=== PATIENT | female | born 1935 | race Caucasian/White ===

== ENCOUNTER 2017-12-13 10:28 | Inpatient (IN) ==
--- NOTE | 2017-12-13 10:45 | Emergency Department Note ---
Disposition Clinical Impression: Acute kidney injury, Dyspnea, Metabolic acidosis, Elevated troponin, Elevated brain natriuretic peptide (BNP) level, Lactic acidosis Disposition: Admitted As Inpatient General Adult HPI - General Chief complaint: ED Shortness of Breath/Dyspnea Stated complaint: resp distress Time Seen by Provider: 12/13/17 10:29 - Related Data Home Medications Medication Instructions Recorded Confirmed Unable To Obtain [Unable to Obtain] 12/13/17 12/13/17 Allergies Allergy/AdvReac Type Severity Reaction Status Date / Time No Known Allergies Allergy Verified 12/13/17 11:00 Course Vital Signs Respiratory Rate 45 12/13/17 10:30 Blood Pressure 146/92 12/13/17 10:30 O2 Sat by Pulse Oximetry 93 12/13/17 10:30 Temperature 98.1 F 12/13/17 15:33 Pulse Rate 134 12/13/17 15:33 Respiratory Rate 36 12/13/17 15:33 Blood Pressure 150/98 12/13/17 15:33 O2 Sat by Pulse Oximetry 97 12/13/17 15:33 Oxygen Delivery Oxygen Delivery Bipap Medical Decision Making - Lab Data Result diagrams: 12/13/17 15:12 12/13/17 15:12 Lab Results 12/13/17 12/13/17 12/13/17 Range/Units 10:46 10:49 10:49 WBC 12.9 H (4.3-11.1) K/mcL RBC 5.51 H (3.82-4.97) M/mcL Hgb 15.4 (11.5-15.4) g/dL Hct 46.9 H (35.3-44.9) % MCV 85.1 (83.0-100.0) fL MCH 27.9 L (28.0-33.3) pg MCHC 32.8 (31.6-35.5) g/dL RDW 15.3 H (11.5-14.5) % Plt Count 143 (140-400) K/mcL MPV 11.3 (9.4-12.4) fL Immature Gran % 0.7 (0-4) % Seg Neutrophils % 51.8 % Lymphocytes % 39.1 % Monocytes % 7.2 % Eosinophils % 0.7 % Basophils % 0.5 % Neutrophils # 6.7 (1.6-8.9) K/mcL Lymphocytes # 5.0 H (0.6-4.6) K/mcL Monocytes # 0.9 (0.0-1.3) K/mcL Eosinophils # 0.1 (0.0-0.6) K/mcL Basophils # 0.1 (0.0-0.2) K/mcL PT (9.4-12.1) Seconds INR APTT (26.0-36.0) Seconds Sample Site R Radial ABG pH 7.20 L* (7.32-7.45) pH Units ABG pCO2 34 L (35-45) mmHg ABG pO2 78 L (85-104) mmHg ABG HCO3 13 L (21-27) mEq/L ABG Total CO2 14 L (20-26) mEq/L ABG O2 Saturation 92 L (95-98) % ABG Base Excess -14 L (-2 to 3) mEq/L Mikie Test N/A O2 Delivery Device BiPAP Blood Gas Modality NIV Inspired O2 80.0 (1-15=lpm [id number]=%) Sodium 134 L (136-145) mEq/L Potassium 4.2 (3.5-5.1) mEq/L Chloride 98 (98-107) mEq/L Carbon Dioxide 15 L (23-29) mEq/L BUN 16 (8-23) mg/dL Creatinine 1.38 H (0.60-1.20) mg/dL Est GFR ( Amer) 44 L (> 60) Est GFR (Non-Af Amer) 37 L (> 60) BUN/Creatinine Ratio 12 (6-26) Glucose 223 H (70-105) mg/dL Calculated Osmolality 286 (280-300) Lactic Acid (0.5-2.2) mmol/L Calcium 9.2 (8.6-10.3) mg/dL Total Bilirubin 0.7 (0.3-1.0) mg/dL AST 13 (13-39) Units/L ALT 6 L (7-52) Units/L Alkaline Phosphatase 88 (34-104) Units/L Creatine Kinase 74 (30-223) Units/L Troponin I 0.06 H* (< 0.04) ng/mL B-Natriuretic Peptide (Less than 100) pg/mL Serum Total Protein 7.3 (6.4-8.9) g/dL Albumin 3.5 (3.5-5.7) g/dL Globulin 3.8 H (2.4-3.5) g/dL Albumin/Globulin Ratio 0.9 L (1.1-2.2) Urine Color (Yellow) Urine Clarity (Clear) Urine pH (5.0-8.0) pH Units Ur Specific [place] (1.010-1.025) Urine Protein (Neg-Trace) mg/dL Urine Glucose (UA) (Normal) mg/dL Urine Ketones (Negative) mg/dL Urine Blood (Negative) Urine Nitrite (Negative) Urine Bilirubin (Negative) Urine Urobilinogen (Normal) mg/dL Ur Leukocyte Esterase (Negative) Urine Microscopic RBC (0-3) per hpf Urine Microscopic WBC (0-3) per hpf Ur Squamous Epith Cells (None-Few) per lpf [place] Biurate Crystals Urine Bacteria (None-Few) per hpf Specimen Rejected 12/13/17 12/13/17 12/13/17 Range/Units 10:49 10:49 10:49 WBC (4.3-11.1) K/mcL RBC (3.82-4.97) M/mcL Hgb (11.5-15.4) g/dL Hct (35.3-44.9) % MCV (83.0-100.0) fL MCH (28.0-33.3) pg MCHC (31.6-35.5) g/dL RDW (11.5-14.5) % Plt Count (140-400) K/mcL MPV (9.4-12.4) fL Immature Gran % (0-4) % Seg Neutrophils % % Lymphocytes % % Monocytes % % Eosinophils % % Basophils % % Neutrophils # (1.6-8.9) K/mcL Lymphocytes # (0.6-4.6) K/mcL Monocytes # (0.0-1.3) K/mcL Eosinophils # (0.0-0.6) K/mcL Basophils # (0.0-0.2) K/mcL PT 13.1 H (9.4-12.1) Seconds INR 1.2 APTT 33.4 (26.0-36.0) Seconds Sample Site ABG pH (7.32-7.45) pH Units ABG pCO2 (35-45) mmHg ABG pO2 (85-104) mmHg ABG HCO3 (21-27) mEq/L ABG Total CO2 (20-26) mEq/L ABG O2 Saturation (95-98) % ABG Base Excess (-2 to 3) mEq/L Mikie Test O2 Delivery Device Blood Gas Modality Inspired O2 (1-15=lpm [id number]=%) Sodium (136-145) mEq/L Potassium (3.5-5.1) mEq/L Chloride (98-107) mEq/L Carbon Dioxide (23-29) mEq/L BUN (8-23) mg/dL Creatinine (0.60-1.20) mg/dL Est GFR ( Amer) (> 60) Est GFR (Non-Af Amer) (> 60) BUN/Creatinine Ratio (6-26) Glucose (70-105) mg/dL Calculated Osmolality (280-300) Lactic Acid (0.5-2.2) mmol/L Calcium (8.6-10.3) mg/dL Total Bilirubin (0.3-1.0) mg/dL AST (13-39) Units/L ALT (7-52) Units/L Alkaline Phosphatase (34-104) Units/L Creatine Kinase (30-223) Units/L Troponin I (< 0.04) ng/mL B-Natriuretic Peptide 646 H (Less than 100) pg/mL Serum Total Protein (6.4-8.9) g/dL Albumin (3.5-5.7) g/dL Globulin (2.4-3.5) g/dL Albumin/Globulin Ratio (1.1-2.2) Urine Color (Yellow) Urine Clarity (Clear) Urine pH (5.0-8.0) pH Units Ur Specific [place] (1.010-1.025) Urine Protein (Neg-Trace) mg/dL Urine Glucose (UA) (Normal) mg/dL Urine Ketones (Negative) mg/dL Urine Blood (Negative) Urine Nitrite (Negative) Urine Bilirubin (Negative) Urine Urobilinogen (Normal) mg/dL Ur Leukocyte Esterase (Negative) Urine Microscopic RBC (0-3) per hpf Urine Microscopic WBC (0-3) per hpf Ur Squamous Epith Cells (None-Few) per lpf [place] Biurate Crystals Urine Bacteria (None-Few) per hpf Specimen Rejected Clotted 12/13/17 12/13/17 Range/Units 11:55 12:04 WBC (4.3-11.1) K/mcL RBC (3.82-4.97) M/mcL Hgb (11.5-15.4) g/dL Hct (35.3-44.9) % MCV (83.0-100.0) fL MCH (28.0-33.3) pg MCHC (31.6-35.5) g/dL RDW (11.5-14.5) % Plt Count (140-400) K/mcL MPV (9.4-12.4) fL Immature Gran % (0-4) % Seg Neutrophils % % Lymphocytes % % Monocytes % % Eosinophils % % Basophils % % Neutrophils # (1.6-8.9) K/mcL Lymphocytes # (0.6-4.6) K/mcL Monocytes # (0.0-1.3) K/mcL Eosinophils # (0.0-0.6) K/mcL Basophils # (0.0-0.2) K/mcL PT (9.4-12.1) Seconds INR APTT (26.0-36.0) Seconds Sample Site ABG pH (7.32-7.45) pH Units ABG pCO2 (35-45) mmHg ABG pO2 (85-104) mmHg ABG HCO3 (21-27) mEq/L ABG Total CO2 (20-26) mEq/L ABG O2 Saturation (95-98) % ABG Base Excess (-2 to 3) mEq/L Mikie Test O2 Delivery Device Blood Gas Modality Inspired O2 (1-15=lpm [id number]=%) Sodium (136-145) mEq/L Potassium (3.5-5.1) mEq/L Chloride (98-107) mEq/L Carbon Dioxide (23-29) mEq/L BUN (8-23) mg/dL Creatinine (0.60-1.20) mg/dL Est GFR ( Amer) (> 60) Est GFR (Non-Af Amer) (> 60) BUN/Creatinine Ratio (6-26) Glucose (70-105) mg/dL Calculated Osmolality (280-300) Lactic Acid 7.6 H* (0.5-2.2) mmol/L Calcium (8.6-10.3) mg/dL Total Bilirubin (0.3-1.0) mg/dL AST (13-39) Units/L ALT (7-52) Units/L Alkaline Phosphatase (34-104) Units/L Creatine Kinase (30-223) Units/L Troponin I (< 0.04) ng/mL B-Natriuretic Peptide (Less than 100) pg/mL Serum Total Protein (6.4-8.9) g/dL Albumin (3.5-5.7) g/dL Globulin (2.4-3.5) g/dL Albumin/Globulin Ratio (1.1-2.2) Urine Color Yellow (Yellow) Urine Clarity Clear (Clear) Urine pH 5.0 (5.0-8.0) pH Units Ur Specific [place] >= 1.030 H (1.010-1.025) Urine Protein 100 H (Neg-Trace) mg/dL Urine Glucose (UA) 100 H (Normal) mg/dL Urine Ketones Trace H (Negative) mg/dL Urine Blood Moderate H (Negative) Urine Nitrite Negative (Negative) Urine Bilirubin Small H (Negative) Urine Urobilinogen Normal (Normal) mg/dL Ur Leukocyte Esterase Negative (Negative) Urine Microscopic RBC 0-3 (0-3) per hpf Urine Microscopic WBC 0-3 (0-3) per hpf Ur Squamous Epith Cells Few (None-Few) per lpf [place] Biurate Crystals Present Urine Bacteria Moderate H (None-Few) per hpf Specimen Rejected Critical Care Time Critical Care Time: Yes Total Critical Care Time: 45 Attestation: The high probability of a clinically significant, sudden or life threatening deterioration of the [] system(s) required my full and direct attention, intervention and personal management. The aggregate critical care time was [] minutes. This time is in addition to time spent performing reported procedures but includes the following: [] Data Review and interpretation [] Patient assessment and monitoring of vital signs [] Documentation [] Medication orders and management Attestation Statement - Attestation Attestation: I examined this patient and my medical decision-making was reviewed with the Resident Physician. I agree with the documented findings, disposition and treatment plan as described except to the extent set forth below. [id number] time provided Patient presents to the emergency department from home after being found on the floor. Uncertain downtime. She was hypoxic prehospital. She presents tachypneic with increased work of breathing on BiPAP.
[2017-12-13 10:50] LABS: ABG Base Excess -14 mEq/L (-2 to 3); ABG HCO3 13 mEq/L (21-27); ABG Oxygen Saturation 92 % (95-98); ABG PCO2 34 mmHg (35-45); ABG PO2 78 mmHg (85-104); ABG TCO2 14 mEq/L (20-26); Blood Gas Modality NIV
--- NOTE | 2017-12-13 10:52 | Emergency Department Note ---
Disposition Clinical Impression: Acute kidney injury, Metabolic acidosis, Elevated troponin, Elevated brain natriuretic peptide (BNP) level, Lactic acidosis Dyspnea Qualifiers: Dyspnea type: shortness of breath Qualified Code(s): R06.02 - Shortness of breath; R06.00 - Dyspnea, unspecified; R06.01 - Orthopnea Disposition: Admitted As Inpatient Forms: ED Satisfaction Letter General Adult HPI - General Chief complaint: ED Shortness of Breath/Dyspnea Stated complaint: resp distress Time Seen by Provider: 12/13/17 10:29 Source: patient Mode of arrival: EMS Limitations: no limitations Nursing Notes Reviewed: Yes Vital Signs Reviewed: Yes - History of Present Illness HPI Narrative: Patient is an 82-year-old female who presents to the ED via via EMS in respiratory distress. History obtained from EMS as the patient is confused. Earlier this morning the patient was found down on the ground for an unknown period of time by her brother. Patient was found to be in respiratory distress and breathing heavily. She is supposed to be on a CPAP at home and she was not oat the time she was found. EMS was called. She was hypoxic with O2 sats in the 60s. She was placed on cpap and O2 sats went up to 77%. EMS gave HER-2 duo nebs and steroids. Patient is also complaining of right leg pain and has no other complaints at this time. Patient states she fell after using the restroom this morning. She does not know if she lost consciousness or how she fell. She denies lightheadedness, dizziness, chest pain. - Related Data Allergies Allergy/AdvReac Type Severity Reaction Status Date / Time No Known Allergies Allergy Verified 12/13/17 11:00 Limitations: ROS unobtainable due to patients medical condition (confusion and in respiratory distress) Constitutional: Denies: fever Cardiovascular: Denies: chest pain Respiratory: Reports: dyspnea. Denies: cough Gastrointestinal: Denies: abdominal pain Musculoskeletal: Reports: other (right leg pain) Past Medical History - Past Medical History Attestation: Yes The following information was validated with the patient. Source: unable to obtain Physical Exam - General Limitations: altered mental status General appearance: alert, in distress - Head Head exam: atraumatic, normocephalic - Eye Eye exam: Present: EOMI. Absent: scleral icterus - Respiratory Respiratory exam: Present: accessory muscle use, other (on bipap. Course breath sounds throughout. ). Absent: wheezes - Cardiovascular Cardiovascular exam: Present: normal rhythm, tachycardia - Abdominal Exam Abdominal exam: Present: soft, Non-Tender - Extremities Exam Extremities exam: Present: other (right hip abducted and right knee bent. diminished capillary refill bilaterally lower extremity) - Neurological Exam Neurological exam: Present: alert, CN II-XII intact, other (Oriented to person and place) - Skin Skin exam: Present: warm, dry. Absent: diaphoresis Course Vital Signs Respiratory Rate 45 12/13/17 10:30 Blood Pressure 146/92 12/13/17 10:30 O2 Sat by Pulse Oximetry 93 12/13/17 10:30 Temperature 97.7 F 12/13/17 10:48 Pulse Rate 142 12/13/17 10:55 Respiratory Rate 43 12/13/17 11:20 Blood Pressure 163/100 12/13/17 10:55 O2 Sat by Pulse Oximetry 100 12/13/17 11:20 Oxygen Delivery Oxygen Delivery Bipap Medical Decision Making - [facility] Narrative Medical decision making narrative: Patient is presenting in respiratory distress and has some confusion. Unknown what her baseline is. We will obtain CT of her head and cervical spine. We do not know the mechanism of her fall. Will evaluate for pneumonia versus COPD exacerbation versus CHF exacerbation versus cardiac ischemia as the cause of the patient's dyspnea. Will also check urinalysis for urinary tract infection and sepsis workup as a cause of the patient's confusion. Patient received two duonebs and steroids en route and oxygenating 100% on bipap at present. Check EKG, CBC, CMP, troponin, blood cultures, lactic acid, PT/INR, ABG. It is also unknown how long the patient was on after the fall so will also obtain creatine kinase for rhabdo. Will also check pelvis xray as the patient's hip is abducted and she is complaining of right leg pain. Bolus of normal saline will be given. Glucose is 150. 11:12 pH is a 7.2, there is a metabolic acidosis. Xhest xray without evidence of acute cardiopulmonary process. Pelvis xray results reviewed and no displaced fracture noted. Significant osteopenia. 11:28 Notified by lab that troponin is 0.06. Will give aspirin. 11:50 Labs reviewed. BNP is 676. Clinically the patient does not look fluid overloaded and no CXR evidence of fluid overload or pulmonary edema. Will not give diuretics at this time. Mild leukocytosis. Creatinine is elevated and no prior labs to compare, likely has acute kidney injury. She appears dry and fluids are ordered. Urinalysis is still pending. Creatinine kinase normal and no evidence of rhabdomyolisis. 12:30 CT head without evidence of acute intracranial process. No urinary tract infection. Patient has metabolic acidosis from lactic acidosis and no evidence of infection at this time. Likely tachpneic from the lactic acidosis. Will consult hospitalist and admit patient for further management. 13:10 Discussed with hospitalist. He will accept the patient. He would like a CTA of her chest. Will order. 13:15 GFR is 37 and will touch base with hospitalist again in regards to the CTA chest. CTA was canceled. Discussed with hospitalist at 13:17. No further recommendations at this time. - Medical Records Medical records reviewed: Yes I reviewed the patient's medical records. - Lab Data Result diagrams: 12/13/17 10:49 12/13/17 10:49 Lab Results 12/13/17 12/13/17 12/13/17 Range/Units 10:46 10:49 10:49 WBC 12.9 H (4.3-11.1) K/mcL RBC 5.51 H (3.82-4.97) M/mcL Hgb 15.4 (11.5-15.4) g/dL Hct 46.9 H (35.3-44.9) % MCV 85.1 (83.0-100.0) fL MCH 27.9 L (28.0-33.3) pg MCHC 32.8 (31.6-35.5) g/dL RDW 15.3 H (11.5-14.5) % Plt Count 143 (140-400) K/mcL MPV 11.3 (9.4-12.4) fL Immature Gran % 0.7 (0-4) % Seg Neutrophils % 51.8 % Lymphocytes % 39.1 % Monocytes % 7.2 % Eosinophils % 0.7 % Basophils % 0.5 % Neutrophils # 6.7 (1.6-8.9) K/mcL Lymphocytes # 5.0 H (0.6-4.6) K/mcL Monocytes # 0.9 (0.0-1.3) K/mcL Eosinophils # 0.1 (0.0-0.6) K/mcL Basophils # 0.1 (0.0-0.2) K/mcL PT (9.4-12.1) Seconds INR APTT (26.0-36.0) Seconds Sample Site R Radial ABG pH 7.20 L* (7.32-7.45) pH Units ABG pCO2 34 L (35-45) mmHg ABG pO2 78 L (85-104) mmHg ABG HCO3 13 L (21-27) mEq/L ABG Total CO2 14 L (20-26) mEq/L ABG O2 Saturation 92 L (95-98) % ABG Base Excess -14 L (-2 to 3) mEq/L Mikie Test N/A O2 Delivery Device BiPAP Blood Gas Modality NIV Inspired O2 80.0 (1-15=lpm [id number]=%) Sodium 134 L (136-145) mEq/L Potassium 4.2 (3.5-5.1) mEq/L Chloride 98 (98-107) mEq/L Carbon Dioxide 15 L (23-29) mEq/L BUN 16 (8-23) mg/dL Creatinine 1.38 H (0.60-1.20) mg/dL Est GFR ( Amer) 44 L (> 60) Est GFR (Non-Af Amer) 37 L (> 60) BUN/Creatinine Ratio 12 (6-26) Glucose 223 H (70-105) mg/dL Calculated Osmolality 286 (280-300) Calcium 9.2 (8.6-10.3) mg/dL Total Bilirubin 0.7 (0.3-1.0) mg/dL AST 13 (13-39) Units/L ALT 6 L (7-52) Units/L Alkaline Phosphatase 88 (34-104) Units/L Creatine Kinase 74 (30-223) Units/L Troponin I 0.06 H* (< 0.04) ng/mL B-Natriuretic Peptide (Less than 100) pg/mL Serum Total Protein 7.3 (6.4-8.9) g/dL Albumin 3.5 (3.5-5.7) g/dL Globulin 3.8 H (2.4-3.5) g/dL Albumin/Globulin Ratio 0.9 L (1.1-2.2) Specimen Rejected 12/13/17 12/13/17 12/13/17 Range/Units 10:49 10:49 10:49 WBC (4.3-11.1) K/mcL RBC (3.82-4.97) M/mcL Hgb (11.5-15.4) g/dL Hct (35.3-44.9) % MCV (83.0-100.0) fL MCH (28.0-33.3) pg MCHC (31.6-35.5) g/dL RDW (11.5-14.5) % Plt Count (140-400) K/mcL MPV (9.4-12.4) fL Immature Gran % (0-4) % Seg Neutrophils % % Lymphocytes % % Monocytes % % Eosinophils % % Basophils % % Neutrophils # (1.6-8.9) K/mcL Lymphocytes # (0.6-4.6) K/mcL Monocytes # (0.0-1.3) K/mcL Eosinophils # (0.0-0.6) K/mcL Basophils # (0.0-0.2) K/mcL PT 13.1 H (9.4-12.1) Seconds INR 1.2 APTT 33.4 (26.0-36.0) Seconds Sample Site ABG pH (7.32-7.45) pH Units ABG pCO2 (35-45) mmHg ABG pO2 (85-104) mmHg ABG HCO3 (21-27) mEq/L ABG Total CO2 (20-26) mEq/L ABG O2 Saturation (95-98) % ABG Base Excess (-2 to 3) mEq/L Mikie Test O2 Delivery Device Blood Gas Modality Inspired O2 (1-15=lpm [id number]=%) Sodium (136-145) mEq/L Potassium (3.5-5.1) mEq/L Chloride (98-107) mEq/L Carbon Dioxide (23-29) mEq/L BUN (8-23) mg/dL Creatinine (0.60-1.20) mg/dL Est GFR ( Amer) (> 60) Est GFR (Non-Af Amer) (> 60) BUN/Creatinine Ratio (6-26) Glucose (70-105) mg/dL Calculated Osmolality (280-300) Calcium (8.6-10.3) mg/dL Total Bilirubin (0.3-1.0) mg/dL AST (13-39) Units/L ALT (7-52) Units/L Alkaline Phosphatase (34-104) Units/L Creatine Kinase (30-223) Units/L Troponin I (< 0.04) ng/mL B-Natriuretic Peptide 646 H (Less than 100) pg/mL Serum Total Protein (6.4-8.9) g/dL Albumin (3.5-5.7) g/dL Globulin (2.4-3.5) g/dL Albumin/Globulin Ratio (1.1-2.2) Specimen Rejected Clotted - Radiology Data Radiology results reviewed: Yes I reviewed the patient's radiology results. Chest X-Ray 12/13/17 10:40 IMPRESSION: No acute process. D/ / Maximo Kohli MD / Maximo Kohli MD Interpreting Provider: Maximo Kohli MD Pelvis X-Ray 12/13/17 10:40 IMPRESSION: Osteopenia. No displaced fracture. Given the degree of osteopenia, nondisplaced fractures may be radiographically occult. If pain or concern for fracture persists, consider MR imaging. D/ / Reginald Pickard MD / Reginald Pickard MD Interpreting Provider: Reginald Pickard MD - EKG Data EKG #1 EKG attestation: Yes I reviewed and interpreted this EKG. EKG results narrative: EKG on 12/13/17 at 10:36 shows sinus tachycardia with heart rate 147. DE interval 144, QT 312, Qtc 488. No old EKG on file to compare to. No ST elevation or depression noted.
[2017-12-13 11:02] LABS: Basophils # 0.1 K/mcL (0.0-0.2); Basophils % 0.5 %; Eosinophils # 0.1 K/mcL (0.0-0.6); Eosinophils % 0.7 %; Hematocrit 46.9 % (35.3-44.9); Hemoglobin 15.4 g/dL (11.5-15.4); Immature Granulocytes % 0.7 % (0-4); Lymphocytes % 39.1 %; Mean Corpuscular HGB Conc 32.8 g/dL (31.6-35.5); Mean Corpuscular Hemoglobin 27.9 pg (28.0-33.3); Mean Corpuscular Volume 85.1 fL (83.0-100.0); Mean Platelet Volume 11.3 fL (9.4-12.4); Monocytes # 0.9 K/mcL (0.0-1.3); Monocytes % 7.2 %; Neutrophils # 6.7 K/mcL (1.6-8.9); Platelet Count 143 K/mcL (140-400); Red Blood Count 5.51 M/mcL (3.82-4.97); Red Cell Distribution Width 15.3 % (11.5-14.5); Segmented Neutrophils % 51.8 %
[2017-12-13 11:07] LABS: INR 1.2; Prothrombin Time 13.1 Seconds (9.4-12.1)
[2017-12-13] MEDS ORDERED: 0.9 % Sodium Chloride 1,000 ML IVC ONE ×3 (11:08→14:44)
[2017-12-13 11:10] LABS: Activated Partial Thrombo Time 33.4 Seconds (26.0-36.0)
[2017-12-13 11:23] LABS: Albumin 3.5 g/dL (3.5-5.7); Albumin/Globulin Ratio 0.9 (1.1-2.2); Bilirubin,Total 0.7 mg/dL (0.3-1.0); Calcium 9.2 mg/dL (8.6-10.3); Globulin 3.8 g/dL (2.4-3.5); Potassium 4.2 mEq/L (3.5-5.1); Total Protein 7.3 g/dL (6.4-8.9)
[2017-12-13 11:25] LABS: Troponin I 0.06 ng/mL (< 0.04)
[2017-12-13] MEDS ORDERED: Aspirin 325 MG TABLET PO ONE (11:28)
[2017-12-13 12:25] LABS: Bilirubin,Urine Small (Negative); Blood,Urine Moderate (Negative); Clarity,Urine Clear (Clear); Color,Urine Yellow (Yellow); Glucose,Urine (UA) 100 mg/dL (Normal); Ketones,Urine Trace mg/dL (Negative); Leukocyte Esterase,Urine Negative (Negative); Nitrite,Urine Negative (Negative); Protein,Urine 100 mg/dL (Neg-Trace); Specific Gravity,Urine >= 1.030 (1.010-1.025); Urobilinogen,Urine Normal (Normal)
[2017-12-13 12:27] LABS: Bacteria,Urine Moderate per hpf (None-Few); RBC,Urine 0-3 per hpf (0-3); Squamous Epithelial Cell,Urine Few per lpf (None-Few); WBC,Urine 0-3 per hpf (0-3)
[2017-12-13] MEDS ORDERED: 0.9 % Sodium Chloride 1,000 ML ONE (12:27)
[2017-12-13] MEDS ORDERED: Isovue-370 500 ML INFUS..BTL IV ONE ×2 (13:13→14:54)
[2017-12-13 15:05] LABS: ABG Base Excess -11 mEq/L (-2 to 3); ABG HCO3 15 mEq/L (21-27); ABG Oxygen Saturation 97 % (95-98); ABG PCO2 33 mmHg (35-45); ABG PH 7.26 pH Units (7.32-7.45); ABG PO2 99 mmHg (85-104); ABG TCO2 16 mEq/L (20-26)
[2017-12-13] MEDS ORDERED: *HR* Heparin 5,000 UNIT/ML VIAL IVP PRN ×2 (15:09)
[2017-12-13] MEDS ORDERED: *HR* Heparin 5,000 UNIT/ML VIAL IVP ONE (15:09)
[2017-12-13] MEDS ORDERED: 0.9 % Sodium Chloride 1,000 ML IVC SCH (15:15)
[2017-12-13 15:26] LABS: Hematocrit 41.2 % (35.3-44.9); Mean Corpuscular HGB Conc 31.6 g/dL (31.6-35.5); Mean Corpuscular Hemoglobin 27.5 pg (28.0-33.3); Mean Corpuscular Volume 87.1 fL (83.0-100.0); Mean Platelet Volume 9.9 fL (9.4-12.4); Platelet Count 105 K/mcL (140-400); Red Blood Count 4.73 M/mcL (3.82-4.97); Red Cell Distribution Width 15.7 % (11.5-14.5)
[2017-12-13 15:55] LABS: Potassium 4.6 mEq/L (3.5-5.1); Troponin I 0.18 ng/mL (< 0.04)
[2017-12-13] MEDS ORDERED: Piperacillin/Tazobactam 3.375 GM in 0.9 % Sodium Chloride Mini Bag 100 ML IVPB SCH (16:00)
[2017-12-13 16:06] LABS: Heparin anti-factor XA UFH 0.05 IU/mL (0.30-0.70)
[2017-12-13 16:07] LABS: INR 1.2; Prothrombin Time 13.4 Seconds (9.4-12.1)
[2017-12-13 16:14] LABS: Calcium 8.2 mg/dL (8.6-10.3)
--- NOTE | 2017-12-13 16:22 | Internal Med History&Physical ---
Date of Encounter: 12/13/17 Time of Encounter: 16:06 Internal Medicine - H&P: HPI Chief complaint: Respiratory Distress Admitted From: Home Plans for Post Hospital Care: Transfer Care Home Facility History of present illness: Ms. Henderson is a 82 year old female Past Med Surg Social Fam HX - Past Medical History Medical history: non-contributory Psychiatric history: no psych history - Social History Smoking Status: Never smoker Smokeless Tobacco Status: No Alcohol use: none Drug use: none Internal Medicine - H&P: Meds Unable To Obtain [Unable to Obtain] 12/13/17 [History] 3 Allergy/AdvReac Type Severity Reaction Status Date / Time No Known Allergies Allergy Verified 12/13/17 11:00 All Systems PM: A 10-system review of systems was performed and is negative for pertinent findings except as documented above in the HPI. - Constitutional Vitals: Temp Pulse Resp BP Pulse Ox 98.1 F 134 36 150/98 97 12/13/17 15:33 12/13/17 15:33 12/13/17 15:33 12/13/17 15:33 12/13/17 15:33 Internal Med - H&P Results - Labs CBC & Chem 7: 12/13/17 15:12 12/13/17 15:12 Labs: Short CBC 12/13/17 Range/Units 15:12 WBC 17.5 H (4.3-11.1) K/mcL Hgb 13.0 D (11.5-15.4) g/dL Hct 41.2 (35.3-44.9) % Plt Count 105 L (140-400) K/mcL BMP 12/13/17 15:12 Sodium 134 L Potassium 4.6 Chloride 104 Cardiac Enzymes 12/13/17 Range/Units 15:12 Troponin I 0.18 H* (< 0.04) ng/mL - ABG Interpretation ABG results: 12/13/17 15:02 ABG pH 7.26 L ABG pCO2 33 L ABG pO2 99 ABG HCO3 15 L ABG Total CO2 16 L ABG O2 Saturation 97 ABG Base Excess -11 L - Time Spent With Patient Total time spent is greater than 50% in coordination of care (as documented) at patient's floor/unit and/or counseling patient:
--- NOTE | 2017-12-13 16:26 | Internal Med History&Physical ---
Date of Encounter: 12/13/17 Time of Encounter: 16:23 Internal Medicine - H&P: HPI Chief complaint: Respiratory Distress Admitted From: Home Plans for Post Hospital Care: Home History of present illness: Ms. Henderson is a 82 year old female who presented to the emergency department with chief complaint of respiratory distress via EMS. History is obtained from patient and ER documentation unable to reach any family members currently. Reportedly the patient got up this morning and was going to the bathroom and then woke up on the ground when her brother found her. ER document that the patient was supposed to be on CPAP but did not have this on. Patient noted to be hypoxic in the 60s upon EMS arrival and brought to the ER and put on BiPAP. Patient's pulse ox improved on BiPAP with 80% FiO2. Patient states that she felt fine yesterday and felt fine when she woke up this morning. Patient was found to be in severe respiratory distress in the ER but on BiPAP which improved respiratory status and tachypnea. She was found to be tachycardic in the 150s. Patient was found to have a high anion gap metabolic acidosis with lactic acidosis and was given 2 L of IV fluids in the ED. Upon my evaluation in the stepdown unit the patient is alert and oriented 2 and states that she has no pain anywhere and is just short of breath however she states this is improving. On physical exam the patient was found to have a dusky-appearing right foot. Patient also found to have an elevated troponin. Currently the patient states that she is fine and wants to go home, however I explained that she is critically ill. She denies any chest pain, denies any palpitations, denies any abdominal pain or nausea, vomiting, diarrhea. Patient is afebrile Imaging studies reveal multiple DVT and arterial thrombosis with no flow to her right lower extremity. He was explained to the patient she has a life-threatening blood clot that would need surgery to survive and require intubation; after these were explained to her in detail the patient is very adamant that she wants no surgery and does not want to be intubated. The patient seems very competent to make this decision she is very adamant and repeated over and over again that she wants nothing and just wants to go home. She states that she understands that she could pass away without these interventions. This was witnessed by nursing staff, myself, Dr. Parker and multiple team members. Eventually we were able to reach the patient's neighbor who look after her and her brother. He states that this is very much in line with the patient's past wishes that she would not want any aggressive intervention done and states that she has been preparing for the end of her life for some time. We requested that he go speak to the brother and informed him of its going on and call us back so we could talk to him as well. I also called the [employer] Department to perform a wellfare check check on her brother. Due to the patient's wishes and desires to go home she states that she is okay to speak to hospice; will make the patient DNR CC at this point. Spoke to social work who will get in contact with hospice and attempt to arrange for the patient to go back home; however she has no insurance so this is unlikely to having this evening. Past Med Surg Social Fam HX - Past Medical History Medical history: non-contributory Psychiatric history: no psych history - Social History Smoking Status: Never smoker Smokeless Tobacco Status: No Alcohol use: none Drug use: none Internal Medicine - H&P: Meds Unable To Obtain [Unable to Obtain] 12/13/17 [History] 3 Allergy/AdvReac Type Severity Reaction Status Date / Time No Known Allergies Allergy Verified 12/13/17 11:00 All Systems PM: A 10-system review of systems was performed and is negative for pertinent findings except as documented above in the HPI. Review of systems: Review of systems is negative other than described in history of present illness 10 point review of systems was attempted to be obtained but is unable to be obtained due to the patient's critical condition and on BiPAP. - Constitutional Vitals: Temp Pulse Resp BP Pulse Ox 98.1 F 134 36 150/98 97 12/13/17 15:33 12/13/17 15:33 12/13/17 15:33 12/13/17 15:33 12/13/17 15:33 Exam: Constitutional: Moderte respiratory distress on bipap, chacetic Psych: AAO x 2; misses the date but has capacity to make medical decisions; she has good insight; understands that she will likely pass away without further intervention HEENT: NCAT, EOMI Neck: supple Cardio: tachycardic, positive s1,s2, no appreciable murmurs rubs or gallops. Difficult to evaluate secondary to tachycardia, no obvious JVD Resp: Patient with good air movement throughout and coarse breath sounds however no obvious rales rhonchi or wheezes appreciated Abd: soft, non tender/non distended, positive bowel sounds, no gaurding/reboud/ ridgitity Extremities: Patient with bilateral lower extremity swelling, dusky right lower leg, Neuro: no focal deficits appreciated Lymph: no cervical/supraclavicular adenopahty apprecitated Internal Med - H&P Results - Labs CBC & Chem 7: 12/13/17 15:12 12/13/17 15:12 Labs: Short CBC 12/13/17 Range/Units 15:12 WBC 17.5 H (4.3-11.1) K/mcL Hgb 13.0 D (11.5-15.4) g/dL Hct 41.2 (35.3-44.9) % Plt Count 105 L (140-400) K/mcL BMP 12/13/17 15:12 Sodium 134 L Potassium 4.6 Chloride 104 Carbon Dioxide 10 L* BUN 16 Creatinine 1.09 Glucose 176 H Calcium 8.2 L Cardiac Enzymes 12/13/17 Range/Units 15:12 Troponin I 0.18 H* (< 0.04) ng/mL - ABG Interpretation ABG results: 12/13/17 15:02 ABG pH 7.26 L ABG pCO2 33 L ABG pO2 99 ABG HCO3 15 L ABG Total CO2 16 L ABG O2 Saturation 97 ABG Base Excess -11 L - Assessment and plan (1) Acute and chronic respiratory failure with hypoxia Current Visit: Yes Status: Acute Assessment and plan: Patient with acute hypoxic respiratory failure -Highly suspect secondary to acute pulmonary embolism due to prelim imaging findings of arterial thrombosis and bilateral DVTs -Heparin drip started empirically initially -Vascular surgery was consult and spoke to vascular surgeon and initially was going to get a CTA of the chest abdomen and pelvis; however the patient is not clinically stable and would not have survived surgery; in addition to this the patient is very adamant that she did not does not want surgery or intubation even if this means she would likely ; he just wants to be comfortable and go home -We will continue heparin drip as a comfort measure for now -We will continue BiPAP as a comfort measure for now -Ativan and morphine ordered for respiratory distress for comfort -After long discussion with patient and many team members CODE STATUS changed to DNR comfort care (2) High anion gap metabolic acidosis Current Visit: Yes Status: Acute Assessment and plan: High anion gap metabolic acidosis likely secondary to lactic acidosis due to respiratory distress and arterial occlusion -Continue heparin drip as a comfort measure -1 amp of bicarbonate given -Continue comfort measures (3) Arterial occlusion, lower extremity Current Visit: Yes Status: Acute Assessment and plan: Preliminary imaging of right lower extremity arterial occlusion with dusky right lower extremity -Patient does not wish to have surgery -CODE STATUS patient comfort care -Continue heparin as a comfort measure (4) DVT (deep venous thrombosis) Current Visit: Yes Status: Acute Assessment and plan: Bilateral DVTs -Suspected pulmonary embolism -Continue IV heparin as a comfort measure only Qualifiers: DVT location: lower extremity Affected thrombotic vein of extremity: unspecified vein of extremity Chronicity: unspecified Laterality: bilateral Qualified Code(s): I82.403 - Acute embolism and thrombosis of unspecified deep veins of lower extremity, bilateral (5) NSTEMI (non-ST elevated myocardial infarction) Current Visit: Yes Status: Acute Assessment and plan: Patient with elevated troponin likely secondary to increasing demand from suspected pulmonary embolism and severe respiratory distress with hypoxia -On heparin drip -Will not trend further troponins secondary to comfort measures (6) Lactic acidosis Current Visit: Yes Status: Acute Assessment and plan: Lactic acidosis likely secondary to respiratory distress and right lower extremity arterial occlusion -Continue BiPAP and heparin drip -No further labs (7) Leukocytosis Current Visit: Yes Status: Acute Assessment and plan: Likely reactive secondary to above Qualifiers: Leukocytosis type: unspecified Qualified Code(s): D72.829 - Elevated white blood cell count, unspecified (8) Acute renal failure Current Visit: Yes Status: Acute Assessment and plan: Patient with elevated creatinine on admission improved with IV fluids -No further labs secondary to above Qualifiers: Acute renal failure type: unspecified Qualified Code(s): N17.9 - Acute kidney failure, unspecified (9) End of life care Current Visit: Yes Status: Acute Assessment and plan: The above findings were conveyed to the patient who very much seems to have the capacity to make medical decisions. She cannot recall the date but knows where she has and her name and why she is here. The patient adamantly declines intubation and any surgery. Even after explaining that she would likely pass away the patient states that she just wants to go home and be comfortable. I spoke to the patient's neighbor I believe his name was Sebastian Johnson who states that this is very much in line with her past wishes and that she has been preparing for the end of her life for some time. This was witnessed by myself, Dr. Parker, multiple team members and nursing staff. CODE STATUS will be made DNR comfort care. Patient states that she is okay with hospice that that will get her home. Social work currently trying to set up hospice we can arrange to get the patient home however she has no insurance listed. Will add when necessary IV morphine and Ativan for respiratory distress, pain, anxiety. Her only wish is to get home. Spoke to social work and [place] [facility] can see the patient at home tomorrow; will attempt to discharge the patient home tomorrow if makes it through the night. I was eventually able to speak to her brother and inform him of her condition and her wishes and of her expected . He was very upset but stated that he understood what was going on. I did speak to the [facility]'s Department who will perform a welfare visit as well on her brother. - Time Spent With Patient Total time spent is greater than 50% in coordination of care (as documented) at patient's floor/unit and/or counseling patient: Greater than 35 minutes
[2017-12-13] MEDS: Heparin 25,000 UNIT/500 ML D5W 25,000 UNIT/500 ML BAG IVC SCH (16:29)
[2017-12-13 17:23] LABS: ABG Base Excess -9 mEq/L (-2 to 3); ABG HCO3 16 mEq/L (21-27); ABG Oxygen Saturation 99 % (95-98); ABG PCO2 31 mmHg (35-45); ABG PH 7.32 pH Units (7.32-7.45); ABG PO2 122 mmHg (85-104); ABG TCO2 17 mEq/L (20-26); Blood Gas PEEP 4 cm H2O; Blood Gas Pressure Support 4 cm H2O; Blood Gas Respiration Rate 8
--- NOTE | 2017-12-13 19:52 | Event Note ---
Date of Encounter: 12/13/17 Time of Encounter: 18:00 Pt is acutely ill with ischemic leg, bilateral DVTs, acidosis and respiratory distress (probable PE). She has been informed of her medical issues and she does not want further intervention. She understands she will with no treatment. Pt appears to competently understand these risks. She has been made DNRCC and social work called.
[2017-12-14] MEDS: *HR* LORazepam 2 MG/ML VIAL IVP PRN ×2 (02:50→11:42)
[2017-12-14] MEDS: *HR* Morphine 2 MG/ML SYRINGE IVP PRN ×2 (05:28→20:20)
--- NOTE | 2017-12-14 13:15 | Internal Med Progress Note ---
Hospitalist Progress Note - Encounter Date of Encounter: 12/14/17 Time of Encounter: 13:09 - Subjective Interval History: Patient seen and examined at bedside. She is now off BiPAP and on nasal cannula. Patient now less responsive. Appears comfortable. Moans with sternal rub. It appears that the patient is in the process of actively dying. - Exam Vitals: Temp Pulse Resp BP Pulse Ox 97.5 F L 98 24 110/84 94 12/14/17 11:13 12/14/17 11:13 12/14/17 11:13 12/14/17 07:16 12/14/17 11:13 Exam: Constitutional: Pt appears comfortable lying in bed on nasal canula Psych: AAO x 0 today as the patient is somnolent; moans to sternal rub; yesterday pt was AAO x2 and would miss the date but had capacity to make medical decisions; she had good insight; she stated she understood that she will likely pass away without further intervention HEENT: NCAT, EOMI Neck: supple Cardio: tachycardic, positive s1,s2, no appreciable murmurs rubs or gallops Resp: Patient with good air movement throughout and coarse breath sounds; remains tachypneic but tachypnea improved Abd: soft, non tender/non distended, positive bowel sounds, no gaurding/reboud/ ridgitity Extremities: Patient with bilateral lower extremity swelling, dusky right lower leg, foot is cold without pulses Neuro: somnolent, moans to sternal rub - Assessment and Plan (1) Acute and chronic respiratory failure with hypoxia Current Visit: Yes Status: Acute Assessment and Plan: Patient with acute hypoxic respiratory failure -Highly suspect secondary to acute pulmonary embolism due to prelim imaging findings of arterial thrombosis and bilateral DVTs -Heparin drip started empirically initially -Vascular surgery was consult and spoke to vascular surgeon and initially was going to get a CTA of the chest abdomen and pelvis; however the patient is not clinically stable and would not have survived surgery; in addition to this the patient is very adamant that she did not does not want surgery or intubation even if this means she would likely ; she just wants to be comfortable and go home -We will continue heparin drip as a comfort measure for now -Off bipap and on nasal canula -Ativan and morphine ordered for respiratory distress for comfort -CODE STATUS is DNR comfort care (2) High anion gap metabolic acidosis Current Visit: Yes Status: Acute Assessment and Plan: High anion gap metabolic acidosis likely secondary to lactic acidosis due to respiratory distress and arterial occlusion -Continue heparin drip as a comfort measure -Continue comfort measures (3) Arterial occlusion, lower extremity Current Visit: Yes Status: Acute Assessment and Plan: Preliminary imaging of right lower extremity arterial occlusion with dusky right lower extremity -Patient does not wish to have surgery -CODE STATUS of patient is comfort care -Continue heparin as a comfort measure (4) DVT (deep venous thrombosis) Current Visit: Yes Status: Acute Assessment and Plan: Bilateral DVTs -Suspected pulmonary embolism -Continue IV heparin as a comfort measure only (5) NSTEMI (non-ST elevated myocardial infarction) Current Visit: Yes Status: Acute Assessment and Plan: Patient with elevated troponin likely secondary to increasing demand from suspected pulmonary embolism and severe respiratory distress with hypoxia -On heparin drip -Will not trend further troponins secondary to comfort measures (6) Lactic acidosis Current Visit: Yes Status: Acute Assessment and Plan: Lactic acidosis likely secondary to respiratory distress and right lower extremity arterial occlusion -Continue BiPAP and heparin drip -No further labs (7) Leukocytosis Current Visit: Yes Status: Acute Assessment and Plan: Likely reactive secondary to above (8) Acute renal failure Current Visit: Yes Status: Acute Assessment and Plan: Patient with elevated creatinine on admission improved with IV fluids -No further labs secondary to above (9) End of life care Current Visit: Yes Status: Acute Assessment and Plan: Yesterday the patient had the capacity to make decisions and declined surgery and intubation stating that she wanted to be comfortable and go home and stated that she understands that she would pass away without intervention. The patient 's neighbor states that this is very much in line with her wishes and the patient has been complaining her and has a home and arrangements picked out. Yesterday she stated she was agreeable to meet with hospice and pt was made comfort care meaures only; we will continue with those measures today. Today the patient is encephalopathic and appears to be in the process of actively dying; he appears comfortable and will continue morphine and Ativan for respiratory distress and anxiety and pain if needed. Palliative care consult to to help with symptom management. [facility] could meet with the patient at home apparently not till tomorrow per RN however I do not believe that this is a very safe or reasonalbe plan; she appears to be actively dying and I do not think that she would survive transport home; after speaking to her brother and neighbor it seems unlikely that the brother has the understanding of hospice and I do not believe that he would be able to care for her at home and administer hospice measures. Due to all of this I believe that it is reasonable and in the best interest of the patient to transfer to a palliative care room in the hospital and continue to administer comfort measures guided by palliative care when they are able to see the patient tomorrow and I expect her to pass in the near future. - Time Spent with Patient Total time spent is greater than 50% in coordination of care (as documented) at patient's floor/unit and/or counseling patient: 25 - 35 minutes Plan of Care Discussed with: patient Internal Medicine: Result - Labs CBC & Chem 7: 12/13/17 15:12 12/13/17 15:12 Labs: Short CBC 12/13/17 Range/Units 15:12 WBC 17.5 H (4.3-11.1) K/mcL Hgb 13.0 D (11.5-15.4) g/dL Hct 41.2 (35.3-44.9) % Plt Count 105 L (140-400) K/mcL BMP 12/13/17 15:12 Sodium 134 L Potassium 4.6 Chloride 104 Carbon Dioxide 10 L* BUN 16 Creatinine 1.09 Glucose 176 H Calcium 8.2 L Cardiac Enzymes 12/13/17 12/13/17 Range/Units 15:12 15:46 Troponin I 0.18 H* 0.21 H* (< 0.04) ng/mL - ABG Interpretation ABG results: ABG ABG pH 7.32 pH Units (7.32-7.45) 12/13/17 17:17 ABG pCO2 31 mmHg (35-45) L 12/13/17 17:17 ABG pO2 122 mmHg (85-104) H 12/13/17 17:17 ABG O2 Saturation 99 % (95-98) H 12/13/17 17:17 PT/INR, D-dimer PT 13.4 Seconds (9.4-12.1) H 12/13/17 15:46 D-Dimer [id number] ng/mLFEU (0-500) H 12/13/17 15:46 Consult Discharge Plan - Plan Referrals: NONE,PCP [Primary Care Provider] - (4) DVT (deep venous thrombosis) Qualifiers: DVT location: lower extremity Affected thrombotic vein of extremity: unspecified vein of extremity Chronicity: unspecified Laterality: bilateral Qualified Code(s): I82.403 - Acute embolism and thrombosis of unspecified deep veins of lower extremity, bilateral (7) Leukocytosis Qualifiers: Leukocytosis type: unspecified Qualified Code(s): D72.829 - Elevated white blood cell count, unspecified (8) Acute renal failure Qualifiers: Acute renal failure type: unspecified Qualified Code(s): N17.9 - Acute kidney failure, unspecified
[2017-12-15] MEDS: Heparin 25,000 UNIT/500 ML D5W 25,000 UNIT/500 ML BAG IVC SCH (04:06)
--- NOTE | 2017-12-15 11:05 | Internal Med Progress Note ---
Hospitalist Progress Note - Encounter Date of Encounter: 12/15/17 Time of Encounter: 11:02 - Subjective Interval History: Patient seen and examined at bedside. Today the patient is much more alert and alert and oriented 2 and at baseline. Patient continues to state that she wants no intervention. She tells me that she understands that her life is coming to an end and that the Lord will take care of her and she is ready. Palliative care evaluating the patient to see if it is possible to take the patient home with home hospice. - Exam Vitals: Temp Pulse Resp BP Pulse Ox 97.7 F 113 18 102/70 92 12/15/17 07:02 12/15/17 07:02 12/15/17 07:02 12/15/17 07:02 12/15/17 07:02 Exam: Constitutional: Pt appears comfortable lying in bed on nasal canula Psych: AAO x 2 (baseline) has appropirate insight and capacity to make decisions ; continues to delcline intervention HEENT: NCAT, EOMI Neck: supple Cardio: tachycardic, positive s1,s2, no appreciable murmurs rubs or gallops Resp: Patient with good air movement throughout and coarse breath sounds; remains tachypneic but tachypnea improved Abd: soft, non tender/non distended, positive bowel sounds, no gaurding/reboud/ ridgitity Extremities: Patient with bilateral lower extremity swelling, both feet are actually pink and warm today; no pulses palpated in right foot however Neuro: somnolent, moans to sternal rub - Assessment and Plan (1) Acute and chronic respiratory failure with hypoxia Current Visit: Yes Status: Acute Assessment and Plan: Patient with acute hypoxic respiratory failure -Highly suspect secondary to acute pulmonary embolism due to prelim imaging findings of arterial thrombosis and bilateral DVTs -Heparin drip started empirically initially -Vascular surgery was consulted initally and spoke to vascular surgeon and initially was going to get a CTA of the chest abdomen and pelvis; however the patient is not clinically stable and would not have survived surgery; in addition to this the patient is very adamant that she did not does not want surgery or intubation even if this means she would likely ; she just wants to be comfortable and go home -We will continue heparin drip as a comfort measure for now -Off bipap and on nasal canula -Ativan and morphine ordered for respiratory distress for comfort -CODE STATUS is DNR comfort care (2) High anion gap metabolic acidosis Current Visit: Yes Status: Acute Assessment and Plan: High anion gap metabolic acidosis likely secondary to lactic acidosis due to respiratory distress and arterial occlusion -Continue heparin drip as a comfort measure -Continue comfort measures (3) Arterial occlusion, lower extremity Current Visit: Yes Status: Acute Assessment and Plan: Preliminary imaging of right lower extremity arterial occlusion with dusky right lower extremity -Patient does not wish to have surgery -CODE STATUS of patient is comfort care -Continue heparin as a comfort measure (4) DVT (deep venous thrombosis) Current Visit: Yes Status: Acute Assessment and Plan: Bilateral DVTs -Suspected pulmonary embolism -Continue IV heparin as a comfort measure only (5) NSTEMI (non-ST elevated myocardial infarction) Current Visit: Yes Status: Acute Assessment and Plan: Patient with elevated troponin likely secondary to increasing demand from suspected pulmonary embolism and severe respiratory distress with hypoxia -On heparin drip -Will not trend further troponins secondary to comfort measures (6) Lactic acidosis Current Visit: Yes Status: Acute Assessment and Plan: Lactic acidosis likely secondary to respiratory distress and right lower extremity arterial occlusion -Continue BiPAP and heparin drip -No further labs (7) Leukocytosis Current Visit: Yes Status: Acute Assessment and Plan: Likely reactive secondary to above (8) Acute renal failure Current Visit: Yes Status: Acute Assessment and Plan: Patient with elevated creatinine on admission improved with IV fluids -No further labs secondary to above (9) End of life care Current Visit: Yes Status: Acute Assessment and Plan: On admission the patient had the capacity to make decisions and declined surgery and intubation stating that she wanted to be comfortable and go home and stated that she understands that she would pass away without intervention. The patient's neighbor states that this is very much in line with her wishes and the patient has been complaining her and has a home and arrangements picked out. She stated she was agreeable to meet with hospice and pt was made comfort care meaures only; we will continue with those measures. Yesterday the patient was encephalopathic and appeared to be in the process of actively dying;today she is more alert and continues to deny intervention. I informed her that she is approaching the end of her life and she states that she understands and she states "I have had a good life, the lord will look after me, I am ready". Palliative care consult to to help with symptom management and hospice placement if possible. He now no the patient has insurance so home hospice is now an option again if the brother and neighbor can help look after her, we are seeing if daily home hospice visits can be arranged. Heparin drip would likely need to be discontinued prior to discharge. Patient currently appears comfortable. We will continue comfort measures and pain and anxiety medications as needed per palliative care. Due to the patient's brothers mentation and status, palliative care is seeing if hospice can do a site visit to see if this is suitable prior to sending the patient home. Therefore discharge will likely happen tomorrow; unable to send home will investigate sending patient to rehabilitation facility for hospice. DVT Prophylaxis: hep gtt - Time Spent with Patient Total time spent is greater than 50% in coordination of care (as documented) at patient's floor/unit and/or counseling patient: less than 15 minutes Plan of Care Discussed with: patient Internal Medicine: Result - Labs CBC & Chem 7: 12/13/17 15:12 12/13/17 15:12 - ABG Interpretation ABG results: ABG ABG pH 7.32 pH Units (7.32-7.45) 12/13/17 17:17 ABG pCO2 31 mmHg (35-45) L 12/13/17 17:17 ABG pO2 122 mmHg (85-104) H 12/13/17 17:17 ABG O2 Saturation 99 % (95-98) H 12/13/17 17:17 PT/INR, D-dimer PT 13.4 Seconds (9.4-12.1) H 12/13/17 15:46 D-Dimer [id number] ng/mLFEU (0-500) H 12/13/17 15:46 Consult Discharge Plan - Plan Referrals: NONE,PCP [Primary Care Provider] - (Patient does not want us to find her a family doctor) (4) DVT (deep venous thrombosis) Qualifiers: DVT location: lower extremity Affected thrombotic vein of extremity: unspecified vein of extremity Chronicity: unspecified Laterality: bilateral Qualified Code(s): I82.403 - Acute embolism and thrombosis of unspecified deep veins of lower extremity, bilateral (7) Leukocytosis Qualifiers: Leukocytosis type: unspecified Qualified Code(s): D72.829 - Elevated white blood cell count, unspecified (8) Acute renal failure Qualifiers: Acute renal failure type: unspecified Qualified Code(s): N17.9 - Acute kidney failure, unspecified
--- NOTE | 2017-12-15 11:11 | Palliative - Consult Note ---
Date of Encounter: 12/15/17 Time of Encounter: 11:00 - Assessment and Plan (1) Generalized pain Current Visit: Yes Status: Acute Assessment and plan: Will transition to oral Roxanol today and see how she tolerates. Titrate as necessary. (2) Dyspnea Current Visit: Yes Status: Acute Assessment and plan: Utilize opioids if needed for dyspnea or air hunger. Supportive oxygen PRN. Qualifiers: Dyspnea type: unspecified Qualified Code(s): R06.00 - Dyspnea, unspecified (3) Advance care planning Current Visit: Yes Status: Acute Assessment and plan: Met with patient - she is able to discuss with me her medical condition and confirms she does not want any interventions. States her 3 years ago and she just wants to go home, spend some time with her brother and pass away there. Patient lives with brother in 2 room cabin. They do have electricity, but no running water and no inside bathroom. Contacted neighbor, ( Sebastian Alba - [phone]) regarding his involvement. He assists when they need it and helps with getting them groceries, but not available to provide any caregiving. States that he is not sure pt brother Alan will be able to care for her. I spoke with Alan on phone, and he knows pt wants to be home, and he wants to try and take care of her, but he is limited in his understanding of her diagnosis. Tried to discuss with him that she will likely in the near future and will need care/medications to keep her comfortable. He stated he understood. Also, it was originally thought that pt was self pay, however, our financial office did contact that she does have active Medicare A/B and Medicaid, so if home caregiving is not safe or adequate for her needs, She could transfer to nursing facility. This was discussed with Jordyn Egan at [facility]. Questioned if possibly a home visit prior to discharge would be helpful. Discussed that brother is illiterate, and will need maximum support for care at home. Heparin will need discontinued - ASA would be able to be continued. D/W Dr. Hopkins. Will anticipate discharge tomorrow. Referral called to [facility]. Total of 90 min was spent in coordination of care and counseling with patient, discussion with family members, chart review, and other providers. (4) Metabolic acidosis Current Visit: Yes Status: Acute (5) Elevated troponin Current Visit: Yes Status: Acute (6) Acute and chronic respiratory failure with hypoxia Current Visit: Yes Status: Acute (7) Arterial occlusion, lower extremity Current Visit: Yes Status: Acute (8) DVT (deep venous thrombosis) Current Visit: Yes Status: Acute Qualifiers: DVT location: lower extremity Affected thrombotic vein of extremity: unspecified vein of extremity Chronicity: unspecified Laterality: bilateral Qualified Code(s): I82.403 - Acute embolism and thrombosis of unspecified deep veins of lower extremity, bilateral (9) NSTEMI (non-ST elevated myocardial infarction) Current Visit: Yes Status: Acute Palliative-CN HPI - Data of Consult Consult date: 12/15/17 Requesting Physician: Jones Hopkins DO Primary Care Provider: PCP NONE - Consult Narrative History of present illness: Ms. Henderson is a 82 year old female who presented to hospital with c/o shortness of breath, who was found to have sepsis, and ischemic right leg. Vascular studies were completed which demonstrated occlusion right sided lower extremity vessels, including Right Prox Superficial Femoral Artery, Popliteal artery, Posterior tibial artery, and peroneal artery. She was also in respiratory distress, and was on bipap yesterday. Over the weekend, conversations were held with patient, which she declined any aggressive intervention or surgery for her condition. She desired transition to comfort care and to go home to spend time with brother and pass away. She states she has prior history of CVA , Heart attack a few years back, and states her 3 years ago. Upon my visit, she is alert and oriented and has finished about 60% of breakfast. She remains on heparin drip - denies any pain or discomfort. Poor dentition. Pleasant and talkative. Asking to go home. Has some understanding of how sick she is, states "I'm old and I'm ready to go be with my again ". "I just want to be home and spend time with my brother before I ". CC: Jones Hopkins DO Past Med Surg Social Fam HX - Past Medical History Medical history: coronary artery disease, CVA Psychiatric history: no psych history - Social History Smoking Status: Never smoker Smokeless Tobacco Status: No Alcohol use: none Drug use: none Medications and Allergies Unable To Obtain [Unable to Obtain] 12/13/17 [History] 3 Allergy/AdvReac Type Severity Reaction Status Date / Time No Known Allergies Allergy Verified 12/13/17 11:00 All systems: reviewed and no additional remarkable complaints except as stated ( weakness, previous right leg pain- now resolved, inability to walk) Palliative Care-Exam - Constitutional Vitals: Temp Pulse Resp BP Pulse Ox 97.7 F 113 18 102/70 92 12/15/17 07:02 12/15/17 07:02 12/15/17 07:02 12/15/17 07:02 12/15/17 07:02 General appearance: Present: no acute distress - Head Head Exam: Present: normal inspection, normocephalic - Expanded ENT Exam Teeth exam: Present: dental caries - Respiratory Respiratory exam: Present: decreased breath sounds - Cardiovascular Cardiovascular exam: Present: irregular rhythm, tachycardia - GI/Abdominal Exam GI/Abdominal exam: Present: normal bowel sounds, soft - Extremities Exam Extremities exam: Present: normal capillary refill Additional comments: Bilateral extremities are warm to touch and she has good sensation. No palpable pulses to right lower extremity. - Neurological Exam Neurological exam: Present: alert, strengths equal and symetr throughout Additional comments: Oriented to name and place, answers most questions appropriately. - Skin Skin exam: Present: dry, pallor, warm Internal Medicine - CN: Reslt - Labs CBC & Chem 7: 12/13/17 15:12 12/13/17 15:12 - ABG Interpretation ABG results: ABG ABG pH 7.32 pH Units (7.32-7.45) 12/13/17 17:17 ABG pCO2 31 mmHg (35-45) L 12/13/17 17:17 ABG pO2 122 mmHg (85-104) H 12/13/17 17:17 ABG O2 Saturation 99 % (95-98) H 12/13/17 17:17 PT/INR, D-dimer PT 13.4 Seconds (9.4-12.1) H 12/13/17 15:46 D-Dimer [id number] ng/mLFEU (0-500) H 12/13/17 15:46 Consult Discharge Plan - Plan Referrals: NONE,PCP [Primary Care Provider] - (Patient does not want us to find her a family doctor) Palliative Quality Palliative Quality: Screen for Code Status: Yes, Screen for Goals of Care: Yes, Screen for Pain: Yes, If Pain Regimen Started, Initiate Bowel Regimen: Yes, Screen for Nausea/Vomitting: Yes Code Status: 12/13/17 15:10 Resuscitation Status: Active [RES] Routine Comment: Resuscitation Status: Full Code Resuscitation Status: Active [RES] Routine Comment: Resuscitation Status: DNR-Comfort Care
[2017-12-15] MEDS ORDERED: MORPHINE SUL Oral CONC 10 MG/0.5 ML ORAL.SYG SL PRN ×2 (13:21→13:23)
[2017-12-15] MEDS ORDERED: *HR* LORazepam Oral Conc 2 MG/ML SL PRN (13:22)
[2017-12-15] MEDS: Aspirin 325 MG TABLET PO SCH (19:04)
[2017-12-16 08:02] VITALS: BP 129/82
[2017-12-16] MEDS ORDERED: Sennosides/Docusate Sodium TABLET PO SCH (09:15)
--- NOTE | 2017-12-16 09:45 | Palliative Progress Note ---
Date of Encounter: 12/16/17 Time of Encounter: 09:00 - Assessment and plan (1) Generalized pain Current Visit: Yes Status: Acute Assessment and plan: Has not utilized any pain medication over last 24 hours, and denies pain this am. Monitor and has Roxanol available if needed. (2) Dyspnea Current Visit: Yes Status: Acute Assessment and plan: Continue supportive oxygen PRN and Roxanol if needed for air hunger. Qualifiers: Dyspnea type: unspecified Qualified Code(s): R06.00 - Dyspnea, unspecified (3) Advance care planning Current Visit: Yes Status: Acute Assessment and plan: Patient can be discharged home today with [facility]. I spoke with her this am, and discussed that if things do not go well at home, or if her brother Alan is unable to provide her care, she would need placed at a nursing facility. She verbalized understanding. She does have Medicaid in place - so if she needs placed, log raft worker can place her from home. Prescriptions for comfort meds have been completed and submitted to pharmacy. Will D/W hospitalist. (4) Metabolic acidosis Current Visit: Yes Status: Acute (5) Elevated troponin Current Visit: Yes Status: Acute (6) Acute and chronic respiratory failure with hypoxia Current Visit: Yes Status: Acute (7) Arterial occlusion, lower extremity Current Visit: Yes Status: Acute (8) DVT (deep venous thrombosis) Current Visit: Yes Status: Acute Qualifiers: DVT location: lower extremity Affected thrombotic vein of extremity: unspecified vein of extremity Chronicity: unspecified Laterality: bilateral Qualified Code(s): I82.403 - Acute embolism and thrombosis of unspecified deep veins of lower extremity, bilateral (9) NSTEMI (non-ST elevated myocardial infarction) Current Visit: Yes Status: Acute - Time Spent With Patient Total time spent is greater than 50% in coordination of care (as documented) at patient's floor/unit and/or counseling patient: - Subjective Interval history: Patient awake and alert, finishing breakfast. Denies any pain or discomfort. Denies right extremity discomfort. Tachypneic, but denies any shortness of breath and feels she is breathing "ok". Anxious to go home. - Constitutional Vitals: Abnormal lab results WBC 17.5 K/mcL (4.3-11.1) H 12/13/17 15:12 MCH 27.5 pg (28.0-33.3) L 12/13/17 15:12 RDW 15.7 % (11.5-14.5) H 12/13/17 15:12 Plt Count 105 K/mcL (140-400) L 12/13/17 15:12 Lymphocytes # 5.0 K/mcL (0.6-4.6) H 12/13/17 10:49 PT 13.4 Seconds (9.4-12.1) H 12/13/17 15:46 D-Dimer [id number] ng/mLFEU (0-500) H 12/13/17 15:46 Heparin Anti-Xa, Unfract 0.00 IU/mL (0.30-0.70) L 12/15/17 21:16 ABG pCO2 31 mmHg (35-45) L 12/13/17 17:17 ABG pO2 122 mmHg (85-104) H 12/13/17 17:17 ABG HCO3 16 mEq/L (21-27) L 12/13/17 17:17 ABG Total CO2 17 mEq/L (20-26) L 12/13/17 17:17 ABG O2 Saturation 99 % (95-98) H 12/13/17 17:17 ABG Base Excess -9 mEq/L (-2 to 3) L 12/13/17 17:17 Sodium 134 mEq/L (136-145) L 12/13/17 15:12 Carbon Dioxide 10 mEq/L (23-29) L* 12/13/17 15:12 Est GFR ( Amer) 58 (> 60) L 12/13/17 15:12 Est GFR (Non-Af Amer) 48 (> 60) L 12/13/17 15:12 Glucose 176 mg/dL (70-105) H 12/13/17 15:12 POC Glucose 150 mg/dL (70-99) H 12/13/17 11:26 Lactic Acid 4.8 mmol/L (0.5-2.2) H* 12/13/17 15:46 Calcium 8.2 mg/dL (8.6-10.3) L 12/13/17 15:12 ALT 6 Units/L (7-52) L 12/13/17 10:49 Troponin I 0.21 ng/mL (< 0.04) H* 12/13/17 15:46 B-Natriuretic Peptide 646 pg/mL (Less than 100) H 12/13/17 10:49 Globulin 3.8 g/dL (2.4-3.5) H 12/13/17 10:49 Albumin/Globulin Ratio 0.9 (1.1-2.2) L 12/13/17 10:49 Ur Specific [place] >= 1.030 (1.010-1.025) H 12/13/17 12:04 Urine Protein 100 mg/dL (Neg-Trace) H 12/13/17 12:04 Urine Glucose (UA) 100 mg/dL (Normal) H 12/13/17 12:04 Urine Ketones Trace mg/dL (Negative) H 12/13/17 12:04 Urine Blood Moderate (Negative) H 12/13/17 12:04 Urine Bilirubin Small (Negative) H 12/13/17 12:04 Urine Bacteria Moderate per hpf (None-Few) H 12/13/17 12:04 General appearance: Present: no acute distress - Respiratory Respiratory exam: Present: decreased breath sounds, tachypnea - Cardiovascular Cardiovascular exam: Present: irregular rhythm, tachycardia - GI/Abdominal GI/Abdominal exam: Present: normal bowel sounds, soft - Extremities Exam Additional comments: Bilateral lower extremities warm to touch, no palpable pulses right leg. - Neurological Exam Neurological exam: Present: alert, strengths equal and symetr throughout Additional comments: Oriented to name and place. - Skin Skin exam: Present: dry, pallor, warm Palliative Quality Palliative Quality: Screen for Code Status: Yes, Screen for Goals of Care: Yes, Screen for Pain: Yes, If Pain Regimen Started, Initiate Bowel Regimen: Yes, Screen for Nausea/Vomitting: Yes Code Status: 12/13/17 15:10 Resuscitation Status: Active [RES] Routine Comment: Resuscitation Status: Full Code Resuscitation Status: Active [RES] Routine Comment: Resuscitation Status: DNR-Comfort Care - Labs CBC & Chem 7: 12/13/17 15:12 12/13/17 15:12 Labs: Laboratory Results - last 24 hr 12/15/17 12/15/17 12:52 21:16 Heparin Anti-Xa, Unfract 0.32 0.00 L - ABG Interpretation ABG results: ABG ABG pH 7.32 pH Units (7.32-7.45) 12/13/17 17:17 ABG pCO2 31 mmHg (35-45) L 12/13/17 17:17 ABG pO2 122 mmHg (85-104) H 12/13/17 17:17 ABG O2 Saturation 99 % (95-98) H 12/13/17 17:17 PT/INR, D-dimer PT 13.4 Seconds (9.4-12.1) H 12/13/17 15:46 D-Dimer 06869 ng/mLFEU (0-500) H 12/13/17 15:46 Consult Discharge Plan - Plan Referrals: NONE,PCP [Primary Care Provider] - (Patient does not want us to find her a family doctor) Prescriptions: Aspirin/Calcium Carbonate/Mag [Aspirin Buffered 325 mg Tab] 325 mg PO DAILY #4 tablet LORazepam Oral Conc [Ativan Oral Conc] 0.5 mg PO Q4H PRN 4 Days #15 mls PRN Reason: Anxiety MORPHINE SUL Oral CONC [Roxanol Oral Conc] 5 mg PO Q2H PRN 4 Days #15 oral.syg PRN Reason: pain/dyspnea Sennosides/Docusate Sodium [Senna Plus] 1 each PO DAILY #4 tablet
--- NOTE | 2017-12-16 09:52 | Physician Discharge Referral ---
<Maggi Sherman - Last Filed: 12/16/17 09:57> Home Health/Hosp Referral Info Transfer to: Hospice Provider in Charge Post Discharge: [employer] Associate - Diagnosis (1) Arterial occlusion, lower extremity Status: Acute (2) NSTEMI (non-ST elevated myocardial infarction) Status: Acute (3) DVT (deep venous thrombosis) Status: Acute (4) Acute and chronic respiratory failure with hypoxia Status: Acute - Respiratory Orders Oxygen / L per min (2-4 LPM for comfort) Smoking Cessation: Smoking cessation has been advised. For more information, call the [place] Tobacco Quit Line at 5-069-UVEA-NOW. - Diet/Nutrition Diet/Nutrition Orders: Mechanical Soft - Activity Activity Orders: Bedrest - Services Needed Following services are medically necessary services: Nursing, Home Health Aide, Med Social Work - Transfer Medications Prescriptions: Aspirin/Calcium Carbonate/Mag [Aspirin Buffered 325 mg Tab] 325 mg PO DAILY #4 tablet LORazepam Oral Conc [Ativan Oral Conc] 0.5 mg PO Q4H PRN 4 Days #15 mls PRN Reason: Anxiety MORPHINE SUL Oral CONC [Roxanol Oral Conc] 5 mg PO Q2H PRN 4 Days #15 oral.syg PRN Reason: pain/dyspnea Sennosides/Docusate Sodium [Senna Plus] 1 each PO DAILY #4 tablet Home Medications: Aspirin/Calcium Carbonate/Mag [Aspirin Buffered 325 mg Tab] 325 mg PO DAILY #4 tablet 12/16/17 [Rx] LORazepam Oral Conc [Ativan Oral Conc] 0.5 mg PO Q4H PRN 4 Days #15 mls [Rx] MORPHINE SUL Oral CONC [Roxanol Oral Conc] 5 mg PO Q2H PRN 4 Days #15 oral.syg 12/16/17 [Rx] Sennosides/Docusate Sodium [Senna Plus] 1 each PO DAILY #4 tablet 12/16/17 [Rx] Allergies/Adverse Reactions: 3 Allergy/AdvReac Type Severity Reaction Status Date / Time No Known Allergies Allergy Verified 12/13/17 11:00 Certification: Further, I certify that my clinical findings support that this patient is homebound (i.e. absences from home require considerable and taxing effort and are for medical reasons or sikh services or infrequently or short duration when for other reasons) because: Homebound Reason: Leaving home requires considerable and taxing effort due to condition Attestation: My signature below is to certify that this patient is under my care and that I, or nurse practitioner, or a physician's business development assistant working with me, has a face-to -face encounter with this patient. <Gaby Noel - Last Filed: 12/16/17 10:02> - Diagnosis (1) Acute and chronic respiratory failure with hypoxia Status: Acute (2) High anion gap metabolic acidosis Status: Acute (3) Arterial occlusion, lower extremity Status: Acute (4) DVT (deep venous thrombosis) Status: Acute (5) NSTEMI (non-ST elevated myocardial infarction) Status: Acute (6) Lactic acidosis Status: Acute (7) Leukocytosis Status: Acute (8) Acute renal failure Status: Acute (9) End of life care Status: Acute - Respiratory Orders Smoking Cessation: Smoking cessation has been advised. For more information, call the [place] Tobacco Quit Line at 1-352-MBEW-NOW. Certification: Further, I certify that my clinical findings support that this patient is homebound (i.e. absences from home require considerable and taxing effort and are for medical reasons or sikh services or infrequently or short duration when for other reasons) because: Attestation: My signature below is to certify that this patient is under my care and that I, or nurse practitioner, or a physician's business development assistant working with me, has a face-to -face encounter with this patient.
--- NOTE | 2017-12-16 09:55 | Discharge Summary ---
- NOTES TO OUTPATIENT PROVIDER Notes to Outpatient Provider: discharging to home with [facility] Date of Encounter: 12/16/17 Time of Encounter: 09:00 - Discharge Diagnosis (1) Acute and chronic respiratory failure with hypoxia Priority: Primary Status: Acute Assessment and Plan: Patient with acute hypoxic respiratory failure -Highly suspect secondary to acute pulmonary embolism due to prelim imaging findings of arterial thrombosis and bilateral DVTs -Heparin drip started empirically initially -Vascular surgery was consulted initally and spoke to vascular surgeon and initially was going to get a CTA of the chest abdomen and pelvis; however the patient is not clinically stable and would not have survived surgery; in addition to this the patient is very adamant that she did not does not want surgery or intubation even if this means she would likely ; she just wants to be comfortable and go home -continued heparin drip as a comfort measure inpt, will dc on aspirin to hospice -Off bipap and on nasal canula -Ativan and pain medications as per palliative care -CODE STATUS is DNR comfort care -dc to home with home hospice (2) High anion gap metabolic acidosis Priority: Secondary Status: Acute Assessment and Plan: High anion gap metabolic acidosis likely secondary to lactic acidosis due to respiratory distress and arterial occlusion -Continue heparin drip as a comfort measure inpt, then asa outpt with hospice -Continue comfort measures (3) Arterial occlusion, lower extremity Priority: Secondary Status: Acute Assessment and Plan: Preliminary imaging of right lower extremity arterial occlusion with dusky right lower extremity -Patient does not wish to have surgery -CODE STATUS of patient is comfort care -asa for comfort on dc, hep gtt while was inpt -dc to home on home hospice per pt request (4) DVT (deep venous thrombosis) Priority: Secondary Status: Acute Assessment and Plan: Bilateral DVTs -Suspected pulmonary embolism -treatment as above Qualifiers: DVT location: lower extremity Affected thrombotic vein of extremity: unspecified vein of extremity Chronicity: unspecified Laterality: bilateral Qualified Code(s): I82.403 - Acute embolism and thrombosis of unspecified deep veins of lower extremity, bilateral (5) NSTEMI (non-ST elevated myocardial infarction) Priority: Secondary Status: Acute Assessment and Plan: Patient with elevated troponin likely secondary to increasing demand from suspected pulmonary embolism and severe respiratory distress with hypoxia -On heparin drip inpt as above -did not trend further troponins secondary to comfort measures -no chest pain on discharge to home hospice, prn vázquez control per palliative care (6) Lactic acidosis Priority: Secondary Status: Acute Assessment and Plan: Lactic acidosis likely secondary to respiratory distress and right lower extremity arterial occlusion -treatment as above (7) Leukocytosis Priority: Secondary Status: Acute Assessment and Plan: Likely reactive secondary to above Qualifiers: Leukocytosis type: unspecified Qualified Code(s): D72.829 - Elevated white blood cell count, unspecified (8) Acute renal failure Priority: Secondary Status: Acute Assessment and Plan: Patient with elevated creatinine on admission improved with IV fluids -No further labs secondary to above Qualifiers: Acute renal failure type: unspecified Qualified Code(s): N17.9 - Acute kidney failure, unspecified (9) End of life care Priority: Primary Status: Acute Assessment and Plan: On admission the patient had the capacity to make decisions and declined surgery and intubation stating that she wanted to be comfortable and go home and stated that she understands that she would pass away without intervention. The patient's neighbor states that this is very much in line with her wishes and the patient has been complaining her and has a home and arrangements picked out. She stated she was agreeable to meet with hospice and pt was made comfort care meaures only; we will continue with those measures. At one point during admission she appeared encephalopathic and appeared to be in the process of actively dying;she then became more alert and continues to deny intervention. Her previous provider informed her that she is approaching the end of her life and she states that she understands and she states "I have had a good life, the lord will look after me, I am ready". Palliative care was consulted to to help with symptom management and hospice placement. Palliative care worked with the patient and her brother and were able to arrange home hospice with [facility]. If brother cannot porived addl care to patient, pt is aware it would be recommended she be placed at facility for continued hospice care DC to home hospice as per recs of Palliative Care Team Hospital course: Ms. Henderson is a 82 year old female who was admitted to the hospital with acute on chronic respiratory distress and generalized pain highly suspected to be secondary to acute PE due to prelm imaging findings of arterial thrombosis and bilateral dvts. She was treated with heparin drip and was seen by vascular surgery. The patient declined any surgical intervention and made her goals of comofrt known to staff. She was seen by Palliative care whom arranged hospice care at home for patient. The details of her admission course can be seen in assessment/plan above. She was dc to home in stable condition with home hospice. - Time Spent with Patient Total time spent providing and/or coordinating discharge services: Less than 30 minutes - Discharge Medications Prescriptions: Aspirin/Calcium Carbonate/Mag [Aspirin Buffered 325 mg Tab] 325 mg PO DAILY #4 tablet LORazepam Oral Conc [Ativan Oral Conc] 0.5 mg PO Q4H PRN 4 Days #15 mls PRN Reason: Anxiety MORPHINE SUL Oral CONC [Roxanol Oral Conc] 5 mg PO Q2H PRN 4 Days #15 oral.syg PRN Reason: pain/dyspnea Sennosides/Docusate Sodium [Senna Plus] 1 each PO DAILY #4 tablet Home Medications: Aspirin/Calcium Carbonate/Mag [Aspirin Buffered 325 mg Tab] 325 mg PO DAILY #4 tablet 12/16/17 [Rx] LORazepam Oral Conc [Ativan Oral Conc] 0.5 mg PO Q4H PRN 4 Days #15 mls [Rx] MORPHINE SUL Oral CONC [Roxanol Oral Conc] 5 mg PO Q2H PRN 4 Days #15 oral.syg 12/16/17 [Rx] Sennosides/Docusate Sodium [Senna Plus] 1 each PO DAILY #4 tablet 12/16/17 [Rx] Allergies/Adverse Reactions: 3 Allergy/AdvReac Type Severity Reaction Status Date / Time No Known Allergies Allergy Verified 12/13/17 11:00 Date of admission: 12/13/17 13:25 Primary care physician: PCP NONE Consults: 12/13/17 14:43 Consult to Registered Safety Engineer [CONS] Routine Reason for SW Consult: living situation 12/14/17 10:04 Consult to Palliative Care [CONS] Stat Comment: Consulting Provider: Palliative Care Shanel Reason for Consult: Patient is now DNR-CC needing End of Life Care Call Completed: No Discharging clinician: Gaby Noel - Constitutional Vitals: Temp Pulse Resp BP Pulse Ox 99.0 F 103 16 129/82 95 12/16/17 08:00 12/16/17 08:00 12/16/17 08:00 12/16/17 08:00 12/16/17 08:00 Exam: General: awake, alert, appears stated age, frail HEENT:EOM, pupils equal, round, moist mucus membranes Cardiovascular:regular rate and rhythm, normal S1 & S2, no rubs, murmurs or gallops. radial pulses 2+, no lower extremity edema Lungs:Normal breath sounds, no wheezes, or crackles. Normal respiratory effort on O2 NC Abdomen:Soft, non-tender, non-distended,+ bowel sounds Neurological: AAOx3, CN grossly intact, no focal deficits Skin:Normal color, no rash, no pallor - Patient Status Disposition: Hospice - Home Condition: Fair - Discharge Instructions Follow Up With: NONE,PCP [Primary Care Provider] - (Patient does not want us to find her a family doctor) Additional Instructions: [facility] - Diet and Activity Activity: increase activity as tolerated, wear oxygen at all times Diet: advance to your usual diet
[2017-12-16] MEDS: Aspirin 325 MG TABLET PO SCH (12:13)
--- NOTE | 2017-12-16 14:02 | Event Note ---
Date of Encounter: 12/16/17 Time of Encounter: 13:50 Spoke with Jordyn Egan from [facility]. Informed I still have not been able to reach brother by telephone. Patient is alert and oriented and able to speak for herself. After discussion with Jordyn, patient will be discharged home per ambulance. Will notify hospice nurse when she leaves here, and she will meet patient at the house. D/W pt primary nurse Liliane.
--- NOTE | 2017-12-16 17:56 | Electrocardiograph Report ---
[address] [place], [place] [address] Test Date: 2017-12-13 Pat Name: Geena Henderson Department: [id number] Room: 2A45 Gender: F Mail Opener: : [id number] Requested By: Iram [place] Order Number: [id number] Reading MD: Dora Judd Measurements Intervals [place] Rate: 147 P: 87 FL: 144 QRS: 140 QRSD: 97 T: -43 QT: 312 QTc: 488 Interpretive Statements Supraventricular tachycardia Right bundle branch block Electronically Signed On 12-16-2017 17:55:18 EDT by Dora Judd
== END 2017-12-16 15:06 | disposition hospice, home (50) | DRG 175 ==
LOC: EMEROOARM 10:28 → SUATTDRO 13:25 → 2NNU 13:25 → 2ANU 12-15 12:02
PROVIDERS: ADMIT Student in an Organized Health Care Education/Training Program; ATTEND Internal Medicine